=== PATIENT | male | born 1995 | race Caucasian/White ===

== ENCOUNTER 2020-06-26 20:00 | Emergency (ER) | payer SELFPAY ==
[~2020-06-26] VITALS: Ht 170.2 cm; Wt 136.0 kg
[2020-06-26 20:22] VITALS: BP 163/98
[2020-06-26] MEDS ORDERED: IBUPROFEN 600MG TABLET PO ONE (20:45)
== END 2020-06-26 21:00 | disposition left against medical advice (07) ==
LOC: ER 20:00
DX: R07.2 Precordial pain (principal); R94.31 Abnormal electrocardiogram [ECG] [EKG]; R03.0 Elevated blood-pressure reading, without diagnosis of hypertension; F12.90 Cannabis use, unspecified, uncomplicated
CPT/HCPCS: 93005; 99281